=== PATIENT | male | born 1990 | race Caucasian/White ===

== ENCOUNTER 2022-07-18 15:27 | Outpatient (CLI) | payer OTHER | END 2022-07-18 15:31 | disposition home or self-care (01) | LOC: LAB 15:27 | PROVIDERS: ATTEND Radiology Diagnostic Radiology | DX: R10.30 Lower abdominal pain, unspecified (principal) ==

== ENCOUNTER 2022-07-20 08:12 | Outpatient (CLI) | payer OTHER | END 2022-07-20 08:27 | disposition home or self-care (01) | LOC: MRI 08:12 | PROVIDERS: ATTEND Internal Medicine Endocrinology, Diabetes & Metabolism | DX: E29.1 Testicular hypofunction (principal); E03.1 Congenital hypothyroidism without goiter; N62 Hypertrophy of breast | CPT/HCPCS: 70552 ==